=== PATIENT | female | born 1995 | race Caucasian/White ===

== ENCOUNTER 2017-10-29 14:56 | Emergency (ER) | payer BC ==
[2017-10-29 15:22] VITALS: BP 116/79
[2017-10-29] MEDS ORDERED: Sodium Chloride 0.9% 1,000 ML IV ONE (15:42)
--- NOTE | 2017-10-29 15:48 | EDM.PDOC ---
ED HPI GENERAL MEDICAL PROBLEM - General Chief Complaint: Flank Pain Stated Complaint: KIDNEY AND SIDE PAIN Time Seen by Provider: 10/29/17 15:30 Source of Information: Reports: Patient History Limitations: Reports: No Limitations - History of Present Illness INITIAL COMMENTS - FREE TEXT/NARRATIVE: Tessie is a pleasant 22yo female, presents to ED ambulatory today with complaints of right flank pain, intermittent x 2 weeks, worse the past 24 hours. She cannot really find a position of comfort. No urinary complaints of dysuria, frequency, urgency, hesitancy. No n/v/d, no f/c/s. She has hx of rt sided renal stone, "7mm", 2 years ago that was removed by Urology in [place]. She has not had any problems since that time. No vaginal discharge or other vaginal complaints. She has mild right sided back pain. Pain to her flank is sharp and stabbing and otherwise is constant achiness. PMH: negative. LMP: 10/18/17- she is trying to concieve at this time and is unsure if she is . No other rx medications daily. Onset: Gradual Duration: Week(s): (but worse over the past 2 days) Location: Reports: Back (rt flank) Quality: Reports: Dull, Sharp, Stabbing Severity: Moderate Improves with: Reports: None Worsens with: Reports: Rest Associated Symptoms: Reports: Diaphoresis (did get sweaty when pain was at its worst). Denies: Confusion, Chest Pain, cough w sputum, Fever/Chills, Headaches , Loss of Appetite, Malaise, Nausea/Vomiting, Shortness of Breath Right Flank Pain Score (Numeric/FACES): 10 - Related Data Allergies Allergy/AdvReac Type Severity Reaction Status Date / Time cephalexin Allergy Rash Verified 07/02/15 17:59 vicodin Allergy Vomiting Uncoded 07/02/15 18:00 Home Meds: Home Meds . [No Known Home Meds] 10/29/17 [History] Past Medical History HEENT History: Reports: Impaired Vision Cardiovascular History: Reports: None Respiratory History: Reports: None Gastrointestinal History: Reports: None Genitourinary History: Reports: Renal Calculus Musculoskeletal History: Reports: Other (See Below) Other Musculoskeletal History: chronic hip dysplasia Psychiatric History: Reports: Depression Endocrine/Metabolic History: Reports: None Oncologic (Cancer) History: Reports: None Dermatologic History: Reports: None - Past Surgical History Musculoskeletal Surgical History: Reports: Hip Replacement Social & Family History - Family History Family Medical History: Noncontributory - Tobacco Use Smoking Status *Q: Former Smoker Years of Tobacco use: 6 Packs/Tins Daily: 0.1 Used Tobacco, but Quit: Yes Month/Year Tobacco Last Used: 2014 Second Hand Smoke Exposure: No - Caffeine Use Caffeine Use: Reports: Soda - Alcohol Use Days Per Week of Alcohol Use: 1 Number of Drinks Per Day: 2 Total Drinks Per Week: 2 - Recreational Drug Use Recreational Drug Use: No - Living Situation & Occupation Living situation: Reports: Single Occupation: Student ED ROS GENERAL - Review of Systems Review Of Systems: See Below Constitutional: Reports: No Symptoms, Other (sweats with pain at its worst) HEENT: Reports: No Symptoms Respiratory: Reports: No Symptoms Cardiovascular: Reports: No Symptoms Endocrine: Reports: No Symptoms GI/Abdominal: Denies: Abdominal Pain, Diarrhea, Nausea, Vomiting : Reports: Other (see HPI; rt sided, colicky flank pain) Musculoskeletal: Reports: Back Pain (rt) Neurological: Reports: No Symptoms Psychiatric: Reports: No Symptoms ED EXAM, GI/ABD - Physical Exam Exam: See Below Exam Limited By: No Limitations General Appearance: Alert, WD/WN, Other (mild distress, unable to sit still due to rt sided flank pain) Eyes: Bilateral: EOMI Ears: Normal External Exam, Hearing Grossly Normal Nose: Normal Inspection Throat/Mouth: Normal Inspection, Normal Lips, Normal Teeth, Normal Gums, Normal Voice, No Airway Compromise Head: Atraumatic, Normocephalic Neck: Normal Inspection, Supple Respiratory/Chest: No Respiratory Distress, Lungs Clear, Normal Breath Sounds Cardiovascular: Regular Rate, Rhythm, No Edema, No Murmur GI/Abdominal Exam: Normal Bowel Sounds, Soft, Non-Tender (Female) Exam: Deferred Rectal (Female) Exam: Deferred Back Exam: CVA Tenderness (R). No: CVA Tenderness (L) Extremities: Normal Inspection, Normal Range of Motion. No: Pedal Edema Neurological: Alert, Oriented, CN II-XII Intact, Normal Cognition Psychiatric: Normal Affect, Normal Mood, Anxious (slightly) Skin Exam: Warm, Dry, Intact Course - Vital Signs Last Recorded V/S: Last Vital Signs Temp 97.7 F 05/04/18 15:18 Pulse 84 10/29/17 15:18 Resp 18 10/29/17 15:18 BP 116/79 10/29/17 15:18 Pulse Ox 100 10/29/17 15:18 - Orders/Labs/Meds Orders: Active Orders 24 hr Category Date Time Status Strain Urine [RC] ASDIRECTED Care 10/29/17 17:23 Active Abdomen Pelvis wo Cont [CT] Stat Exams 10/29/17 16:32 Taken UA W/MICROSCOPIC [URIN] Stat Lab 10/29/17 15:35 Ordered Labs: Laboratory Tests 10/29/17 10/29/17 10/29/17 Range/Units 15:35 15:50 15:50 WBC 8.63 (3.98-10.04) K/mm3 RBC 4.31 (3.98-5.22) M/mm3 Hgb 13.2 (11.2-15.7) gm/L Hct 38.8 (34.1-44.9) % MCV 90.0 (79.4-94.8) fl MCH 30.6 (25.6-32.2) pg MCHC 34.0 (32.2-35.5) g/dl RDW Std Deviation 38.1 (36.4-46.3) fL Plt Count 321 (182-369) K/mm3 MPV 9.2 L (9.4-12.3) fl Neut % (Auto) 60.3 (34.0-71.1) % Lymph % (Auto) 28.2 (19.3-51.7) % [place] % (Auto) 9.6 (4.7-12.5) % Eos % (Auto) 1.7 (0.7-5.8) Baso % (Auto) 0.1 (0.1-1.2) % Neut # (Auto) 5.20 (1.56-6.13) K/mm3 Lymph # (Auto) 2.43 (1.18-3.74) K/mm3 [place] # (Auto) 0.83 H (0.24-0.36) K/mm3 Eos # (Auto) 0.15 (0.04-0.36) K/mm3 Baso # (Auto) 0.01 (0.01-0.08) K/mm3 Sodium 137 (136-145) mEq/L Potassium 3.6 (3.5-5.1) mEq/L Chloride 104 (98-107) mEq/L Carbon Dioxide 26 (21-32) mEq/L Anion Gap 10.6 (5-15) BUN 14 (7-18) mg/dL Creatinine 0.8 (0.55-1.02) mg/dL Est Cr Clr Drug Dosing 107.26 mL/min Estimated GFR (MDRD) > 60 (>60) mL/min BUN/Creatinine Ratio 17.5 (14-18) Glucose 96 (74-106) mg/dL Calcium 9.2 (8.5-10.1) mg/dL Total Bilirubin 0.3 (0.2-1.0) mg/dL AST 18 (15-37) U/L ALT 33 (14-59) U/L Alkaline Phosphatase 71 (46-116) U/L Total Protein 7.3 (6.4-8.2) g/dl Albumin 4.1 (3.4-5.0) g/dl Globulin 3.2 gm/dL Albumin/Globulin Ratio 1.3 (1-2) HCG, Qual (NEGATIVE) Urine Color Light yellow (Yellow) Urine Appearance Cloudy H (Clear) Urine pH 7.5 (5.0-8.0) Ur Specific [place] 1.020 (1.005-1.030) Urine Protein Negative (Negative) Urine Glucose (UA) Negative (Negative) Urine Ketones Negative (Negative) Urine Occult Blood Negative (Negative) Urine Nitrite Negative (Negative) Urine Bilirubin Negative (Negative) Urine Urobilinogen 0.2 (0.2-1.0) Ur Leukocyte Esterase Trace H (Negative) Urine RBC Not seen (0-5) /hpf Urine WBC 0-5 (0-5) /hpf Ur Epithelial Cells 0-5 (0-5) /hpf Amorphous Sediment Moderate H (NOT SEEN) /hpf Urine Bacteria Few (FEW) /hpf Urine Mucus Few (FEW) /hpf 10/29/17 Range/Units 15:50 WBC (3.98-10.04) K/mm3 RBC (3.98-5.22) M/mm3 Hgb (11.2-15.7) gm/L Hct (34.1-44.9) % MCV (79.4-94.8) fl MCH (25.6-32.2) pg MCHC (32.2-35.5) g/dl RDW Std Deviation (36.4-46.3) fL Plt Count (182-369) K/mm3 MPV (9.4-12.3) fl Neut % (Auto) (34.0-71.1) % Lymph % (Auto) (19.3-51.7) % [place] % (Auto) (4.7-12.5) % Eos % (Auto) (0.7-5.8) Baso % (Auto) (0.1-1.2) % Neut # (Auto) (1.56-6.13) K/mm3 Lymph # (Auto) (1.18-3.74) K/mm3 [place] # (Auto) (0.24-0.36) K/mm3 Eos # (Auto) (0.04-0.36) K/mm3 Baso # (Auto) (0.01-0.08) K/mm3 Sodium (136-145) mEq/L Potassium (3.5-5.1) mEq/L Chloride (98-107) mEq/L Carbon Dioxide (21-32) mEq/L Anion Gap (5-15) BUN (7-18) mg/dL Creatinine (0.55-1.02) mg/dL Est Cr Clr Drug Dosing mL/min Estimated GFR (MDRD) (>60) mL/min BUN/Creatinine Ratio (14-18) Glucose (74-106) mg/dL Calcium (8.5-10.1) mg/dL Total Bilirubin (0.2-1.0) mg/dL AST (15-37) U/L ALT (14-59) U/L Alkaline Phosphatase (46-116) U/L Total Protein (6.4-8.2) g/dl Albumin (3.4-5.0) g/dl Globulin gm/dL Albumin/Globulin Ratio (1-2) HCG, Qual Negative (NEGATIVE) Urine Color (Yellow) Urine Appearance (Clear) Urine pH (5.0-8.0) Ur Specific [place] (1.005-1.030) Urine Protein (Negative) Urine Glucose (UA) (Negative) Urine Ketones (Negative) Urine Occult Blood (Negative) Urine Nitrite (Negative) Urine Bilirubin (Negative) Urine Urobilinogen (0.2-1.0) Ur Leukocyte Esterase (Negative) Urine RBC (0-5) /hpf Urine WBC (0-5) /hpf Ur Epithelial Cells (0-5) /hpf Amorphous Sediment (NOT SEEN) /hpf Urine Bacteria (FEW) /hpf Urine Mucus (FEW) /hpf Meds: Medications Discontinued Medications Generic Name Dose Route Start Last Admin Trade Name Freq PRN Reason Stop Dose Admin Sodium Chloride 1,000 mls @ 999 mls/hr 10/29/17 15:42 10/29/17 15:49 Normal Saline IV 10/29/17 16:42 999 mls/hr ONETIME ONE Administration - Re-Assessments/Exams Free Text/Narrative Re-Assessment/Exam: 10/29/17 15:49 Suspect this is recurrent renal stone. Will check hcg to r/o , if negative patient wishes to proceed with CT of abd/pelvis to r/o stones. Will check UA, CBC and CMP. 1L IVF ordered, she defers toradol or flomax at this time. Free Text/Narrative Re-Assessment/Exam: 10/29/17 17:20 CT scan shows bilateral renal stones, largest approximately 2.3mm by my review and close to UV junction. Will await radiologist final interp. Patient has been hydrated, recommend cont to push fluids. Strain all urine, bring in stone if collected for analysis. Motrin TID PRN for discomfort. Departure - Departure Time of Disposition: 17:21 Disposition: Home, Self-Care 01 Condition: Good Clinical Impression: Nephrolithiasis - Discharge Information Instructions: Renal Colic, [id number], Kidney Stones, [id number] Referrals: Courtney Herron MEDICAL INSURANCE CLERK [Primary Care Provider] - Forms: ED Department Discharge Additional Instructions: Push fluids Strain all urine Motrin 600mg 3 times daily, or tylenol 3 times daily, if needed for discomfort Tramadol if needed- Instymed prescription given. Follow up with Primary Care if not improved or resolved by 5-7 days. This stone appears to be 2.5mm and should pass on its own, if discomfort becomes greater please return to ED or with Primary Care. - My Orders Last 24 Hours: My Active Orders 10/29/17 15:35 UA W/MICROSCOPIC [URIN] Stat 10/29/17 16:32 Abdomen Pelvis wo Cont [CT] Stat 10/29/17 17:23 Strain Urine [RC] ASDIRECTED - Assessment/Plan Last 24 Hours: My Active Orders 10/29/17 15:35 UA W/MICROSCOPIC [URIN] Stat 10/29/17 16:32 Abdomen Pelvis wo Cont [CT] Stat 10/29/17 17:23 Strain Urine [RC] ASDIRECTED
--- NOTE | 2017-10-29 17:37 | CT ---
CT abdomen and pelvis Technique: Multiple axial sections were obtained from top of the liver inferiorly through the pubic symphysis. Intravenous and oral contrast was not utilized. Study has been performed as a ureteral stone protocol. Findings: Ureters show no dilatation. No abnormal calcifications are seen along the course of the ureters. Kidneys show no hydronephrosis or abnormal calcifications. Visualized lung bases shows nothing acute. Noncontrast appearance of the liver and spleen appears within normal limits. Adrenal glands show no nodule. Pancreas is within normal limits. Gallbladder contains no calcified gallstones. Aorta shows no aneurysmal dilatation. No retroperitoneal adenopathy or mesenteric abnormalities are seen. No pelvic mass or adenopathy is seen. No free fluid or inflammatory change is seen. Appendix is not definitely appreciated. Bone window settings were reviewed which appear within normal limits for the patient's age. Impression: 1. No renal calculi, ureteral dilatation or ureteral stone is seen. 2. Nothing acute is definitely appreciated on noncontrast CT study of the abdomen and pelvis. Diagnostic code #1
== END 2017-10-29 17:40 | disposition home or self-care (01) ==
LOC: JD.ED 14:56
DX: N20.0 Calculus of kidney (principal); Z88.1 Allergy status to other antibiotic agents; Z88.5 Allergy status to narcotic agent; Z87.891 Personal history of nicotine dependence
CPT/HCPCS: 36415; 74176; 80053; 81001; 84703; 85025; 96360; 96361; 99284; J7040; 99283